=== PATIENT | male | born 1940 | race Caucasian/White ===

== ENCOUNTER 2021-10-07 10:47 | Inpatient (IN) ==
[2021-10-07 11:25] LABS: Basophils # 0.1 10*3/uL (0.0-0.2); Basophils % 0.4 % (0.0-0.8); Eosinophils # 0.3 10*3/uL (0.0-0.87); Eosinophils % 2.2 % (0.00-10.9); Hematocrit 44.7 VOL% (42.0-52.0); Hemoglobin 14.7 GM/DL (14.0-18.0); Immature Granulocytes % 0.4 %; Immature Granulocytes Absolute 0.05 #; Lymphocytes % 17.5 % (21.2-54.2); Mean Corpuscular HGB Conc 32.9 GM/DL (32-36); Mean Corpuscular Volume 96.1 FL (87-102); Mean Platelet Volume 9.6 FL (9.6-12.0); Monocytes # 0.8 10*3/uL (0.11-0.8); Monocytes % 6.7 % (1.7-12.7); Neutrophils % 72.8 % (38.7-73.9); Platelet Count 288 T/CUMM (130-400); Red Blood Count 4.65 MC/CUMM (3.8-5.5); Red Cell Distribution Width 13.5 % (9.3-17.3); White Blood Count 11.5 T/CUMM (4-12)
[2021-10-07] MEDS ORDERED: ALBUTEROL/IPRATROPIUM 3 ML NEB RESP TX STA (11:35)
[2021-10-07] MEDS ORDERED: methylPREDNISolone SOD SUC 125 MG/2 ML VIAL IV STA (11:35)
[2021-10-07 11:46] LABS: Albumin 2.5 G/DL (3.4-5.0); Bilirubin,Total 0.6 MG/DL (0.20-1.00); Calcium 8.3 MG/DL (8.5-10.1); Osmolality,Calculated 283.1 MOS/KG (273-304); Potassium 3.9 MMOL/L (3.5-5.1); Total Protein 6.1 G/DL (6.4-8.2)
[2021-10-07 13:10] LABS: Mucus,Urine Many /LPF (Occasional); RBC,Urine 393 /HPF (0-4); Squamous Epithelial Cell,Urine Few /HPF (0-10)
[2021-10-07 13:11] LABS: Urine Color Yellow (Yellow)
[2021-10-07 13:12] LABS: Bilirubin,Urine Negative (Negative); Blood, Urine Large mg/dL (Negative); Glucose,Urine (UA) Negative (Negative); Ketones,Urine Negative (Negative); Nitrite,Urine Positive (Negative); Protein,Urine >=300 mg/dL (Negative); Urine Appearance Cloudy (Clear); Urine Specific Gravity > 1.030 (1.001-1.035); Urine Urobilinogen 0.2 eU/dL (<2.0); Urine pH 6.5 (4.5-8.0)
[2021-10-07] MEDS ORDERED: cefTRIAXone 1,000 MG in SODIUM CHLORIDE 0.9% 100 ML IV STA (13:38)
[2021-10-07] MEDS ORDERED: ONDANSETRON 4 MG/2 ML VIAL IV PRN (13:47)
[2021-10-07] MEDS ORDERED: ACETAMINOPHEN 325 MG TABLET PO PRN (13:47)
[2021-10-07] MEDS ORDERED: hydrOXYzine HCL 25 MG TABLET PO PRN (16:19)
[2021-10-07] MEDS: SODIUM CHLORIDE 0.9% 1,000 ML IV SCH ×2 (16:36→23:38)
[2021-10-07] MEDS: lisinopriL 10 MG TABLET PO SCH (17:54)
[2021-10-07] MEDS: METOPROLOL TARTRATE 100 MG TABLET PO SCH (17:54)
[2021-10-07] MEDS: methylPREDNISolone SOD SUC 40 MG/1 ML VIAL IV SCH (17:55)
[2021-10-07 18:35] LABS: Mucus,Urine Occasional /LPF (Occasional); RBC,Urine 46 /HPF (0-4)
[2021-10-07 18:36] LABS: Bilirubin,Urine Negative (Negative); Blood, Urine Large mg/dL (Negative); Glucose,Urine (UA) Negative (Negative); Ketones,Urine Negative (Negative); Nitrite,Urine Negative (Negative); Protein,Urine 100 mg/dL (Negative); Urine Appearance Cloudy (Clear); Urine Color Yellow (Yellow); Urine Specific Gravity 1.015 (1.001-1.035); Urine Urobilinogen 0.2 eU/dL (<2.0)
[2021-10-07] MEDS: ALBUTEROL/IPRATROPIUM 3 ML NEB RESP TX SCH (19:25)
[2021-10-07] MEDS: DOCUSATE SODIUM 100 MG CAPSULE PO SCH (20:56)
[2021-10-08] MEDS: methylPREDNISolone SOD SUC 40 MG/1 ML VIAL IV SCH ×3 (02:10→17:21)
[2021-10-08 06:32] LABS: Basophils % 0.2 % (0.0-0.8); Hematocrit 39.7 VOL% (42.0-52.0); Hemoglobin 12.9 GM/DL (14.0-18.0); Immature Granulocytes Absolute 0.13 #; Mean Corpuscular HGB Conc 32.5 GM/DL (32-36); Mean Platelet Volume 10.2 FL (9.6-12.0); Monocytes # 0.1 10*3/uL (0.11-0.8); Monocytes % 0.9 % (1.7-12.7); Neutrophils % 89.9 % (38.7-73.9); Platelet Count 276 T/CUMM (130-400); Red Blood Count 4.05 MC/CUMM (3.8-5.5); Red Cell Distribution Width 13.2 % (9.3-17.3); White Blood Count 12.9 T/CUMM (4-12)
[2021-10-08 07:03] LABS: Calcium 8.1 MG/DL (8.5-10.1); Osmolality,Calculated 285.1 MOS/KG (273-304); Potassium 3.8 MMOL/L (3.5-5.1)
[2021-10-08] MEDS: ALBUTEROL/IPRATROPIUM 3 ML NEB RESP TX SCH ×4 (07:30→19:20)
[2021-10-08] MEDS: cefTRIAXone 1,000 MG in SODIUM CHLORIDE 0.9% 100 ML IV SCH (08:28)
[2021-10-08] MEDS: DOCUSATE SODIUM 100 MG CAPSULE PO SCH ×2 (08:28→21:27)
[2021-10-08] MEDS: METOPROLOL TARTRATE 100 MG TABLET PO SCH (08:29)
[2021-10-08] MEDS: lisinopriL 10 MG TABLET PO SCH (08:29)
[2021-10-08] MEDS: SODIUM CHLORIDE 0.9% 1,000 ML IV SCH ×2 (08:29→16:57)
[2021-10-08] MEDS: PANTOPRAZOLE 40 MG TABLET PO SCH (08:29)
[2021-10-08] MEDS: TAMSULOSIN 0.4 MG CAPSULE PO SCH (08:29)
[2021-10-09] MEDS: SODIUM CHLORIDE 0.9% 1,000 ML IV SCH ×3 (00:20→18:36)
[2021-10-09] MEDS: ALBUTEROL/IPRATROPIUM 3 ML NEB RESP TX SCH ×4 (01:35→19:13)
[2021-10-09] MEDS: methylPREDNISolone SOD SUC 40 MG/1 ML VIAL IV SCH ×4 (01:50→18:35)
[2021-10-09 05:01] LABS: Basophils % 0.1 % (0.0-0.8); Hematocrit 38.4 VOL% (42.0-52.0); Hemoglobin 12.2 GM/DL (14.0-18.0); Immature Granulocytes % 1.3 %; Immature Granulocytes Absolute 0.25 #; Lymphocytes # 0.8 10*3/uL (1.4-4.0); Lymphocytes % 4.1 % (21.2-54.2); Mean Corpuscular HGB Conc 31.8 GM/DL (32-36); Mean Corpuscular Volume 98.7 FL (87-102); Mean Platelet Volume 9.7 FL (9.6-12.0); Monocytes # 0.4 10*3/uL (0.11-0.8); Monocytes % 1.8 % (1.7-12.7); Neutrophils % 92.7 % (38.7-73.9); Platelet Count 272 T/CUMM (130-400); Red Blood Count 3.89 MC/CUMM (3.8-5.5); Red Cell Distribution Width 13.5 % (9.3-17.3); White Blood Count 19.5 T/CUMM (4-12)
[2021-10-09 05:23] LABS: Bilirubin,Total 0.5 MG/DL (0.20-1.00); Potassium 3.7 MMOL/L (3.5-5.1); Total Protein 5.4 G/DL (6.4-8.2)
[2021-10-09 05:27] LABS: Lymphocytes 4 % (20-55); Microcytosis 1+; Ovalocytes Slight; Total Cells Counted 100
[2021-10-09 05:28] LABS: Platelet Estimate Normal
[2021-10-09] MEDS: DOCUSATE SODIUM 100 MG CAPSULE PO SCH ×3 (07:59→21:04)
[2021-10-09] MEDS: METOPROLOL TARTRATE 100 MG TABLET PO SCH ×2 (07:59→09:54)
[2021-10-09] MEDS: PANTOPRAZOLE 40 MG TABLET PO SCH ×2 (07:59→09:55)
[2021-10-09] MEDS: TAMSULOSIN 0.4 MG CAPSULE PO SCH ×2 (07:59→09:54)
[2021-10-09] MEDS: cefTRIAXone 1,000 MG in SODIUM CHLORIDE 0.9% 100 ML IV SCH (08:00)
[2021-10-09] MEDS: lisinopriL 10 MG TABLET PO SCH ×2 (08:00→09:54)
[2021-10-09] MEDS: BUDESONIDE 0.25 MG/2 ML NEB RESP TX SCH ×2 (13:38→19:14)
[2021-10-09] MEDS: MEROPENEM 500 MG in SODIUM CHLORIDE 0.9% 100 ML IV SCH ×2 (15:43→21:03)
[2021-10-09] MEDS: AZITHROMYCIN 250 MG TABLET PO SCH (15:45)
[2021-10-10] MEDS: ALBUTEROL/IPRATROPIUM 3 ML NEB RESP TX SCH ×4 (00:42→19:22)
[2021-10-10] MEDS: methylPREDNISolone SOD SUC 40 MG/1 ML VIAL IV SCH ×3 (02:38→17:18)
[2021-10-10] MEDS: SODIUM CHLORIDE 0.9% 1,000 ML IV SCH ×4 (02:45→22:16)
[2021-10-10] MEDS: MEROPENEM 500 MG in SODIUM CHLORIDE 0.9% 100 ML IV SCH ×4 (04:27→21:15)
[2021-10-10 05:33] LABS: Basophils % 0.1 % (0.0-0.8); Hematocrit 37.5 VOL% (42.0-52.0); Hemoglobin 12.2 GM/DL (14.0-18.0); Immature Granulocytes % 2.4 %; Immature Granulocytes Absolute 0.38 #; Lymphocytes # 0.7 10*3/uL (1.4-4.0); Lymphocytes % 4.6 % (21.2-54.2); Mean Corpuscular HGB Conc 32.5 GM/DL (32-36); Mean Corpuscular Volume 97.2 FL (87-102); Mean Platelet Volume 9.7 FL (9.6-12.0); Monocytes # 0.5 10*3/uL (0.11-0.8); Monocytes % 2.9 % (1.7-12.7); Platelet Count 277 T/CUMM (130-400); Red Blood Count 3.86 MC/CUMM (3.8-5.5); Red Cell Distribution Width 13.6 % (9.3-17.3); White Blood Count 16.1 T/CUMM (4-12)
[2021-10-10 05:59] LABS: Alanine Aminotransferase 23 U/L (16-61); Alkaline Phosphatase 65 U/L (45-117); Aspartate Amino Transferase 20 U/L (0-37); Bilirubin,Total < 0.39 MG/DL (0.20-1.00); Blood Urea Nitrogen 14 MG/DL (7-18); Calcium 7.7 MG/DL (8.5-10.1); Carbon Dioxide 21 MMOL/L (21-32); Chloride 115 MMOL/L (98-107); Estimated Glom Filtration Rate 87 ML/MIN; Glucose 129 MG/DL (74-106); Potassium 3.4 MMOL/L (3.5-5.1); Sodium 143 MMOL/L (136-145); Total Protein 5.3 G/DL (6.4-8.2)
[2021-10-10 06:11] LABS: Lymphocytes 3 % (20-55); Platelet Estimate Normal; Total Cells Counted 100
[2021-10-10] MEDS: BUDESONIDE 0.25 MG/2 ML NEB RESP TX SCH ×2 (07:20→19:22)
[2021-10-10] MEDS: TAMSULOSIN 0.4 MG CAPSULE PO SCH (09:26)
[2021-10-10] MEDS: AZITHROMYCIN 250 MG TABLET PO SCH (09:26)
[2021-10-10] MEDS: lisinopriL 10 MG TABLET PO SCH (09:26)
[2021-10-10] MEDS: AMPICILLIN 500 MG CAPSULE PO SCH ×4 (09:26→20:12)
[2021-10-10] MEDS: METOPROLOL TARTRATE 100 MG TABLET PO SCH (09:27)
[2021-10-10] MEDS: DOCUSATE SODIUM 100 MG CAPSULE PO SCH ×2 (09:27→20:12)
[2021-10-10] MEDS: PANTOPRAZOLE 40 MG TABLET PO SCH (09:28)
[2021-10-10] MEDS: BISACODYL 5 MG TABLET PO PRN (20:15)
[2021-10-11] MEDS: ALBUTEROL/IPRATROPIUM 3 ML NEB RESP TX SCH ×4 (00:31→19:35)
[2021-10-11] MEDS: MEROPENEM 500 MG in SODIUM CHLORIDE 0.9% 100 ML IV SCH ×4 (03:13→21:30)
[2021-10-11] MEDS: methylPREDNISolone SOD SUC 40 MG/1 ML VIAL IV SCH ×3 (03:13→17:30)
[2021-10-11] MEDS: SODIUM CHLORIDE 0.9% 1,000 ML IV SCH ×2 (05:02→14:00)
[2021-10-11 06:15] LABS: Basophils # 0.1 10*3/uL (0.0-0.2); Basophils % 0.5 % (0.0-0.8); Hematocrit 38.9 VOL% (42.0-52.0); Hemoglobin 12.6 GM/DL (14.0-18.0); Immature Granulocytes % 5.2 %; Immature Granulocytes Absolute 0.77 #; Lymphocytes % 6.9 % (21.2-54.2); Mean Corpuscular HGB Conc 32.4 GM/DL (32-36); Monocytes # 0.7 10*3/uL (0.11-0.8); Monocytes % 4.5 % (1.7-12.7); Neutrophils % 82.9 % (38.7-73.9); Platelet Count 269 T/CUMM (130-400); Red Blood Count 3.97 MC/CUMM (3.8-5.5); Red Cell Distribution Width 13.5 % (9.3-17.3); White Blood Count 14.7 T/CUMM (4-12)
[2021-10-11 06:34] LABS: Bilirubin,Total 1.3 MG/DL (0.20-1.00); Calcium 7.9 MG/DL (8.5-10.1); Osmolality,Calculated 291.7 MOS/KG (273-304); Potassium 3.4 MMOL/L (3.5-5.1); Total Protein 5.3 G/DL (6.4-8.2)
[2021-10-11 06:46] LABS: Band Neutrophils 4 % (0-10); Lymphocytes 10 % (20-55); Myelocytes 1 %; Platelet Estimate Normal; Smudge Cells Few; Total Cells Counted 100
[2021-10-11 06:47] LABS: Anisocytosis 1+; Burr Cells Few; Macrocytosis Slight
[2021-10-11] MEDS: BUDESONIDE 0.25 MG/2 ML NEB RESP TX SCH ×2 (07:00→19:35)
[2021-10-11] MEDS ORDERED: ALBUTEROL/IPRATROPIUM 3 ML NEB RESP TX PRN (08:39)
[2021-10-11] MEDS: AMPICILLIN 500 MG CAPSULE PO SCH ×4 (09:33→20:56)
[2021-10-11] MEDS: TAMSULOSIN 0.4 MG CAPSULE PO SCH (09:33)
[2021-10-11] MEDS: METOPROLOL TARTRATE 100 MG TABLET PO SCH (09:34)
[2021-10-11] MEDS: PANTOPRAZOLE 40 MG TABLET PO SCH (09:34)
[2021-10-11] MEDS: AZITHROMYCIN 250 MG TABLET PO SCH (09:34)
[2021-10-11] MEDS: DOCUSATE SODIUM 100 MG CAPSULE PO SCH ×2 (09:34→20:56)
[2021-10-11] MEDS: lisinopriL 10 MG TABLET PO SCH (09:41)
[2021-10-11] MEDS: BISACODYL 5 MG TABLET PO PRN (20:56)
[2021-10-12] MEDS: ALBUTEROL/IPRATROPIUM 3 ML NEB RESP TX SCH ×4 (00:28→19:37)
[2021-10-12] MEDS: SODIUM CHLORIDE 0.9% 1,000 ML IV SCH ×4 (01:50→21:56)
[2021-10-12] MEDS: methylPREDNISolone SOD SUC 40 MG/1 ML VIAL IV SCH ×3 (03:30→17:14)
[2021-10-12] MEDS: MEROPENEM 500 MG in SODIUM CHLORIDE 0.9% 100 ML IV SCH ×4 (03:42→21:51)
[2021-10-12 05:47] LABS: Basophils # 0.1 10*3/uL (0.0-0.2); Basophils % 0.7 % (0.0-0.8); Hematocrit 38.6 VOL% (42.0-52.0); Hemoglobin 12.8 GM/DL (14.0-18.0); Immature Granulocytes % 5.6 %; Immature Granulocytes Absolute 0.89 #; Lymphocytes # 1.3 10*3/uL (1.4-4.0); Lymphocytes % 8.1 % (21.2-54.2); Mean Corpuscular HGB Conc 33.2 GM/DL (32-36); Mean Corpuscular Volume 97.2 FL (87-102); Mean Platelet Volume 10.7 FL (9.6-12.0); Monocytes # 0.8 10*3/uL (0.11-0.8); Monocytes % 5.1 % (1.7-12.7); NRBC # 0.08 10*3/uL; Neutrophils % 80.5 % (38.7-73.9); Platelet Count 257 T/CUMM (130-400); Red Blood Count 3.97 MC/CUMM (3.8-5.5); Red Cell Distribution Width 13.6 % (9.3-17.3); White Blood Count 15.8 T/CUMM (4-12)
[2021-10-12 05:51] LABS: Lymphocytes 9 % (20-55); Metamyelocytes 2 %; Total Cells Counted 100
[2021-10-12 05:52] LABS: Microcytosis 1+; Ovalocytes Slight
[2021-10-12 05:53] LABS: Platelet Estimate Normal; Polychromasia Slight
[2021-10-12] MEDS: BUDESONIDE 0.25 MG/2 ML NEB RESP TX SCH ×2 (07:50→19:37)
[2021-10-12] MEDS: DOCUSATE SODIUM 100 MG CAPSULE PO SCH ×2 (08:15→21:52)
[2021-10-12] MEDS: lisinopriL 10 MG TABLET PO SCH (08:15)
[2021-10-12] MEDS: PANTOPRAZOLE 40 MG TABLET PO SCH (08:16)
[2021-10-12] MEDS: METOPROLOL TARTRATE 100 MG TABLET PO SCH (08:16)
[2021-10-12] MEDS: AZITHROMYCIN 250 MG TABLET PO SCH (08:16)
[2021-10-12] MEDS: AMPICILLIN 500 MG CAPSULE PO SCH ×4 (08:16→21:52)
[2021-10-12] MEDS: TAMSULOSIN 0.4 MG CAPSULE PO SCH ×2 (08:16→21:52)
[2021-10-12] MEDS: MAGNESIUM CITRATE 300 ML BOTTLE PO SCH (21:51)
[2021-10-13] MEDS: ALBUTEROL/IPRATROPIUM 3 ML NEB RESP TX SCH ×4 (00:46→19:25)
[2021-10-13] MEDS: methylPREDNISolone SOD SUC 40 MG/1 ML VIAL IV SCH ×3 (01:37→17:09)
[2021-10-13] MEDS: MEROPENEM 500 MG in SODIUM CHLORIDE 0.9% 100 ML IV SCH ×4 (05:01→21:39)
[2021-10-13] MEDS: MAGNESIUM CITRATE 300 ML BOTTLE PO SCH ×2 (05:01→14:50)
[2021-10-13] MEDS: BUDESONIDE 0.25 MG/2 ML NEB RESP TX SCH ×2 (07:41→19:25)
[2021-10-13] MEDS: TAMSULOSIN 0.4 MG CAPSULE PO SCH ×2 (09:45→21:40)
[2021-10-13] MEDS: lisinopriL 10 MG TABLET PO SCH (09:45)
[2021-10-13] MEDS: AMPICILLIN 500 MG CAPSULE PO SCH ×4 (09:45→21:40)
[2021-10-13] MEDS: DOCUSATE SODIUM 100 MG CAPSULE PO SCH ×2 (09:46→21:40)
[2021-10-13] MEDS: METOPROLOL TARTRATE 100 MG TABLET PO SCH (09:46)
[2021-10-13] MEDS: PANTOPRAZOLE 40 MG TABLET PO SCH (09:46)
[2021-10-13] MEDS: AZITHROMYCIN 250 MG TABLET PO SCH (09:46)
[2021-10-13] MEDS: SODIUM CHLORIDE 0.9% 1,000 ML IV SCH ×2 (11:40→17:45)
[2021-10-13] MEDS ORDERED: BISACODYL 10 MG SUPP RECTAL ONE (13:45)
[2021-10-13] MEDS ORDERED: SODIUM PHOSPHATE ENEMA 133 ML BOTTLE RECTAL ONE (14:30)
[2021-10-13] MEDS: LACTULOSE 20 GM/30 ML UDCUP PO SCH ×2 (16:46→21:40)
[2021-10-14] MEDS: methylPREDNISolone SOD SUC 40 MG/1 ML VIAL IV SCH ×3 (01:10→18:03)
[2021-10-14] MEDS: ALBUTEROL/IPRATROPIUM 3 ML NEB RESP TX SCH ×4 (01:10→19:23)
[2021-10-14] MEDS: SODIUM CHLORIDE 0.9% 1,000 ML IV SCH ×3 (01:10→21:37)
[2021-10-14] MEDS: MEROPENEM 500 MG in SODIUM CHLORIDE 0.9% 100 ML IV SCH ×4 (03:31→21:37)
[2021-10-14 04:59] LABS: Basophils # 0.1 10*3/uL (0.0-0.2); Basophils % 0.7 % (0.0-0.8); Hematocrit 43.7 VOL% (42.0-52.0); Hemoglobin 14.4 GM/DL (14.0-18.0); Immature Granulocytes Absolute 1.19 #; Lymphocytes # 0.8 10*3/uL (1.4-4.0); Lymphocytes % 4.2 % (21.2-54.2); Mean Corpuscular Volume 95.6 FL (87-102); Mean Platelet Volume 9.7 FL (9.6-12.0); Monocytes # 0.7 10*3/uL (0.11-0.8); Monocytes % 3.5 % (1.7-12.7); NRBC # 0.03 10*3/uL; Neutrophils % 85.6 % (38.7-73.9); Platelet Count 252 T/CUMM (130-400); Red Blood Count 4.57 MC/CUMM (3.8-5.5); Red Cell Distribution Width 13.7 % (9.3-17.3); White Blood Count 19.8 T/CUMM (4-12)
[2021-10-14 05:19] LABS: Albumin 2.2 G/DL (3.4-5.0); Bilirubin,Total 0.6 MG/DL (0.20-1.00); Calcium 7.9 MG/DL (8.5-10.1); Osmolality,Calculated 286.1 MOS/KG (273-304); Total Protein 5.3 G/DL (6.4-8.2)
[2021-10-14 05:22] LABS: Hypochromia Slight; Lymphocytes 2 % (20-55); Microcytosis 1+; Total Cells Counted 100
[2021-10-14 05:23] LABS: Ovalocytes Slight; Platelet Estimate Normal
[2021-10-14] MEDS: BUDESONIDE 0.25 MG/2 ML NEB RESP TX SCH ×2 (06:59→19:23)
[2021-10-14] MEDS ORDERED: MEPERIDINE 50 MG/1 ML VIAL IM ONE (07:30)
[2021-10-14] MEDS ORDERED: PROMETHAZINE 25 MG/1 ML VIAL IM ONE (07:30)
[2021-10-14] MEDS ORDERED: LIDOCAINE 2% VISCOUS 100 ML BOTTLE SWISH/SPIT ONE (08:00)
[2021-10-14] MEDS ORDERED: LIDOCAINE 1% 20 ML VIAL MISC INJ ONE (08:00)
[2021-10-14] MEDS ORDERED: MIDAZOLAM 2 MG/2 ML VIAL IV ONE (08:00)
[2021-10-14] MEDS ORDERED: LIDOCAINE 2% 20 ML VIAL RESP TX ONE (08:00)
[2021-10-14] MEDS: DOCUSATE SODIUM 100 MG CAPSULE PO SCH ×2 (11:09→21:36)
[2021-10-14] MEDS: AMPICILLIN 500 MG CAPSULE PO SCH ×4 (11:09→21:36)
[2021-10-14] MEDS: POLYETHYLENE GLYCOL POWDER 17 GM PACK PO SCH (11:10)
[2021-10-14] MEDS: LACTULOSE 20 GM/30 ML UDCUP PO SCH (11:51)
[2021-10-14] MEDS: METOPROLOL TARTRATE 100 MG TABLET PO SCH (14:06)
[2021-10-14] MEDS: AZITHROMYCIN 250 MG TABLET PO SCH (14:06)
[2021-10-14] MEDS: PANTOPRAZOLE 40 MG TABLET PO SCH (14:06)
[2021-10-14] MEDS: lisinopriL 10 MG TABLET PO SCH (14:06)
[2021-10-14] MEDS: TAMSULOSIN 0.4 MG CAPSULE PO SCH ×2 (15:17→21:36)
[2021-10-15] MEDS: ALBUTEROL/IPRATROPIUM 3 ML NEB RESP TX SCH ×4 (00:38→19:44)
[2021-10-15] MEDS: methylPREDNISolone SOD SUC 40 MG/1 ML VIAL IV SCH ×3 (02:02→17:38)
[2021-10-15] MEDS: MEROPENEM 500 MG in SODIUM CHLORIDE 0.9% 100 ML IV SCH ×4 (04:50→22:41)
[2021-10-15] MEDS: BUDESONIDE 0.25 MG/2 ML NEB RESP TX SCH ×2 (07:35→19:44)
[2021-10-15] MEDS ORDERED: NICOTINE 7 MG/24 HR PATCH TRANSDERM PRN (09:00)
[2021-10-15] MEDS: AMPICILLIN 500 MG CAPSULE PO SCH ×4 (09:23→20:38)
[2021-10-15] MEDS: AZITHROMYCIN 250 MG TABLET PO SCH (09:23)
[2021-10-15] MEDS: TAMSULOSIN 0.4 MG CAPSULE PO SCH ×2 (09:23→20:39)
[2021-10-15] MEDS: PANTOPRAZOLE 40 MG TABLET PO SCH (09:24)
[2021-10-15] MEDS: DOCUSATE SODIUM 100 MG CAPSULE PO SCH ×2 (09:24→20:39)
[2021-10-15] MEDS: METOPROLOL TARTRATE 100 MG TABLET PO SCH (09:24)
[2021-10-15] MEDS: lisinopriL 10 MG TABLET PO SCH (09:24)
[2021-10-15] MEDS: POLYETHYLENE GLYCOL POWDER 17 GM PACK PO SCH (10:16)
[2021-10-15] MEDS: SODIUM CHLORIDE 0.9% 1,000 ML IV SCH (13:58)
[2021-10-16] MEDS: ALBUTEROL/IPRATROPIUM 3 ML NEB RESP TX SCH ×4 (00:45→19:35)
[2021-10-16] MEDS: methylPREDNISolone SOD SUC 40 MG/1 ML VIAL IV SCH ×3 (01:52→21:35)
[2021-10-16] MEDS: MEROPENEM 500 MG in SODIUM CHLORIDE 0.9% 100 ML IV SCH ×4 (03:32→21:37)
[2021-10-16] MEDS: SODIUM CHLORIDE 0.9% 1,000 ML IV SCH (03:36)
[2021-10-16 05:48] LABS: Basophils # 0.1 10*3/uL (0.0-0.2); Basophils % 0.5 % (0.0-0.8); Hematocrit 43.2 VOL% (42.0-52.0); Hemoglobin 13.7 GM/DL (14.0-18.0); Immature Granulocytes % 5.2 %; Immature Granulocytes Absolute 0.86 #; Lymphocytes # 0.7 10*3/uL (1.4-4.0); Lymphocytes % 4.2 % (21.2-54.2); Mean Corpuscular HGB Conc 31.7 GM/DL (32-36); Mean Corpuscular Volume 96.9 FL (87-102); Mean Platelet Volume 9.9 FL (9.6-12.0); Monocytes # 0.6 10*3/uL (0.11-0.8); Monocytes % 3.4 % (1.7-12.7); Neutrophils % 86.7 % (38.7-73.9); Platelet Count 228 T/CUMM (130-400); Red Blood Count 4.46 MC/CUMM (3.8-5.5); White Blood Count 16.5 T/CUMM (4-12)
[2021-10-16 06:07] LABS: Albumin 2.1 G/DL (3.4-5.0); Bilirubin,Total 0.6 MG/DL (0.20-1.00); Calcium 7.5 MG/DL (8.5-10.1); Potassium 3.9 MMOL/L (3.5-5.1); Total Protein 5.1 G/DL (6.4-8.2)
[2021-10-16 06:12] LABS: Lymphocytes 1 % (20-55); Platelet Estimate Adequate; Total Cells Counted 100
[2021-10-16] MEDS: BUDESONIDE 0.25 MG/2 ML NEB RESP TX SCH ×2 (07:30→19:45)
[2021-10-16] MEDS: DOCUSATE SODIUM 100 MG CAPSULE PO SCH ×2 (09:22→21:34)
[2021-10-16] MEDS: PANTOPRAZOLE 40 MG TABLET PO SCH (09:22)
[2021-10-16] MEDS: AMPICILLIN 500 MG CAPSULE PO SCH ×4 (09:22→21:34)
[2021-10-16] MEDS: METOPROLOL TARTRATE 100 MG TABLET PO SCH (09:22)
[2021-10-16] MEDS: TAMSULOSIN 0.4 MG CAPSULE PO SCH ×2 (09:22→21:34)
[2021-10-16] MEDS: LACTULOSE 20 GM/30 ML UDCUP PO SCH (09:22)
[2021-10-16] MEDS: POLYETHYLENE GLYCOL POWDER 17 GM PACK PO SCH (09:22)
[2021-10-16] MEDS: AZITHROMYCIN 250 MG TABLET PO SCH (09:22)
[2021-10-16] MEDS: lisinopriL 10 MG TABLET PO SCH (09:22)
[2021-10-17] MEDS: ALBUTEROL/IPRATROPIUM 3 ML NEB RESP TX SCH ×4 (01:35→19:13)
[2021-10-17] MEDS: BUDESONIDE 0.25 MG/2 ML NEB RESP TX SCH ×2 (07:07→19:13)
[2021-10-17] MEDS: DOCUSATE SODIUM 100 MG CAPSULE PO SCH ×2 (08:44→21:28)
[2021-10-17] MEDS: PANTOPRAZOLE 40 MG TABLET PO SCH (08:44)
[2021-10-17] MEDS: POLYETHYLENE GLYCOL POWDER 17 GM PACK PO SCH (08:44)
[2021-10-17] MEDS: METOPROLOL TARTRATE 100 MG TABLET PO SCH (08:44)
[2021-10-17] MEDS: LACTULOSE 20 GM/30 ML UDCUP PO SCH (08:45)
[2021-10-17] MEDS: methylPREDNISolone SOD SUC 40 MG/1 ML VIAL IV SCH ×2 (08:45→21:28)
[2021-10-17] MEDS: lisinopriL 10 MG TABLET PO SCH (08:45)
[2021-10-17] MEDS: TAMSULOSIN 0.4 MG CAPSULE PO SCH ×2 (08:45→21:28)
[2021-10-17] MEDS: FLUCONAZOLE 100 MG TABLET PO SCH (09:47)
[2021-10-18 05:15] LABS: Basophils # 0.1 10*3/uL (0.0-0.2); Basophils % 0.6 % (0.0-0.8); Hematocrit 44.5 VOL% (42.0-52.0); Hemoglobin 14.6 GM/DL (14.0-18.0); Immature Granulocytes % 4.5 %; Immature Granulocytes Absolute 0.79 #; Lymphocytes # 0.9 10*3/uL (1.4-4.0); Mean Corpuscular HGB Conc 32.8 GM/DL (32-36); Mean Corpuscular Volume 96.5 FL (87-102); Mean Platelet Volume 9.9 FL (9.6-12.0); Monocytes # 0.6 10*3/uL (0.11-0.8); Monocytes % 3.3 % (1.7-12.7); Neutrophils % 86.6 % (38.7-73.9); Platelet Count 220 T/CUMM (130-400); Red Blood Count 4.61 MC/CUMM (3.8-5.5); Red Cell Distribution Width 14.1 % (9.3-17.3); White Blood Count 17.5 T/CUMM (4-12)
[2021-10-18 05:43] LABS: Calcium 7.5 MG/DL (8.5-10.1); Osmolality,Calculated 284.3 MOS/KG (273-304); Potassium 4.2 MMOL/L (3.5-5.1)
[2021-10-18 06:00] LABS: Band Neutrophils 1 % (0-10); Lymphocytes 4 % (20-55); Total Cells Counted 100
[2021-10-18 06:01] LABS: Microcytosis 1+; Platelet Estimate Normal
[2021-10-18] MEDS: BUDESONIDE 0.25 MG/2 ML NEB RESP TX SCH ×2 (07:00→20:30)
[2021-10-18] MEDS: ALBUTEROL/IPRATROPIUM 3 ML NEB RESP TX SCH ×3 (07:00→19:20)
[2021-10-18] MEDS: LACTULOSE 20 GM/30 ML UDCUP PO SCH (08:59)
[2021-10-18] MEDS: PANTOPRAZOLE 40 MG TABLET PO SCH (09:00)
[2021-10-18] MEDS: DOCUSATE SODIUM 100 MG CAPSULE PO SCH ×2 (09:00→21:19)
[2021-10-18] MEDS: FLUCONAZOLE 100 MG TABLET PO SCH (09:00)
[2021-10-18] MEDS: POLYETHYLENE GLYCOL POWDER 17 GM PACK PO SCH (09:00)
[2021-10-18] MEDS: lisinopriL 10 MG TABLET PO SCH (09:00)
[2021-10-18] MEDS: methylPREDNISolone SOD SUC 40 MG/1 ML VIAL IV SCH ×2 (09:00→21:20)
[2021-10-18] MEDS: METOPROLOL TARTRATE 100 MG TABLET PO SCH (09:00)
[2021-10-18] MEDS: TAMSULOSIN 0.4 MG CAPSULE PO SCH ×2 (09:00→21:19)
[2021-10-19] MEDS: ALBUTEROL/IPRATROPIUM 3 ML NEB RESP TX SCH ×3 (00:45→14:10)
[2021-10-19] MEDS: BUDESONIDE 0.25 MG/2 ML NEB RESP TX SCH (07:15)
[2021-10-19] MEDS ORDERED: predniSONE 20 MG TABLET PO SCH (09:00)
[2021-10-19] MEDS: LACTULOSE 20 GM/30 ML UDCUP PO SCH (09:06)
[2021-10-19] MEDS: DOCUSATE SODIUM 100 MG CAPSULE PO SCH (09:07)
[2021-10-19] MEDS: TAMSULOSIN 0.4 MG CAPSULE PO SCH (09:07)
[2021-10-19] MEDS: PANTOPRAZOLE 40 MG TABLET PO SCH (09:07)
[2021-10-19] MEDS: POLYETHYLENE GLYCOL POWDER 17 GM PACK PO SCH (09:07)
[2021-10-19] MEDS: FLUCONAZOLE 100 MG TABLET PO SCH (09:07)
[2021-10-19] MEDS: lisinopriL 10 MG TABLET PO SCH (09:08)
[2021-10-19] MEDS: METOPROLOL TARTRATE 100 MG TABLET PO SCH (09:12)
[2021-10-19 17:53] VITALS: BP 153/88
== END 2021-10-19 18:00 | disposition home health service (06) | DRG 190 ==
LOC: N.ED 10:47 → N.EDINP 10:47 → N.3E 15:18
PROVIDERS: ADMIT Internal Medicine; ATTEND Internal Medicine

== ENCOUNTER 2021-11-12 18:59 | Inpatient (IN) ==
[2021-11-12] MEDS ORDERED: ALBUTEROL/IPRATROPIUM 3 ML NEB RESP TX STA (19:48)
[2021-11-12] MEDS ORDERED: methylPREDNISolone SOD SUC 125 MG/2 ML VIAL IV STA (19:48)
[2021-11-12] MEDS ORDERED: DIPH/TET/ACEL PERT BOOSTER VACCINE 0.5 ML VIAL IM ONE (19:48)
[2021-11-12 20:10] LABS: Basophils # 0.1 10*3/uL (0.0-0.2); Basophils % 0.7 % (0.0-0.8); Eosinophils # 0.1 10*3/uL (0.0-0.87); Eosinophils % 0.5 % (0.00-10.9); Hematocrit 45.1 VOL% (42.0-52.0); Hemoglobin 14.5 GM/DL (14.0-18.0); Immature Granulocytes % 4.8 %; Immature Granulocytes Absolute 0.51 #; Lymphocytes # 2.6 10*3/uL (1.4-4.0); Lymphocytes % 24.5 % (21.2-54.2); Mean Corpuscular HGB Conc 32.2 GM/DL (32-36); Mean Corpuscular Volume 97.4 FL (87-102); Mean Platelet Volume 9.3 FL (9.6-12.0); Monocytes # 0.6 10*3/uL (0.11-0.8); Neutrophils % 63.5 % (38.7-73.9); Platelet Count 256 T/CUMM (130-400); Red Blood Count 4.63 MC/CUMM (3.8-5.5); Red Cell Distribution Width 14.6 % (9.3-17.3); White Blood Count 10.7 T/CUMM (4-12)
[2021-11-12 20:20] LABS: PT Patient Result 10.9 SECS (10.5-12.0)
[2021-11-12 20:34] LABS: Calcium 8.3 MG/DL (8.5-10.1); Osmolality,Calculated 288.8 MOS/KG (273-304)
[2021-11-12 20:47] LABS: Lymphocytes 25 % (20-55); Platelet Estimate Adequate; Total Cells Counted 100
[2021-11-13] MEDS ORDERED: ONDANSETRON 4 MG/2 ML VIAL IV PRN (00:43)
[2021-11-13] MEDS ORDERED: MORPHINE 2 MG/1 ML SYRINGE IV PRN (00:43)
[2021-11-13] MEDS ORDERED: ACETAMINOPHEN 325 MG TABLET PO PRN (00:43)
[2021-11-13] MEDS: ALBUTEROL/IPRATROPIUM 3 ML NEB RESP TX SCH ×7 (00:49→23:28)
[2021-11-13 01:11] LABS: Bacteria,Urine Many /HPF (Few); Bilirubin,Urine Negative (Negative); Blood, Urine Large mg/dL (Negative); Glucose,Urine (UA) Negative (Negative); Ketones,Urine Negative (Negative); Mucus,Urine Occasional /LPF (Occasional); Nitrite,Urine Positive (Negative); Protein,Urine 30 mg/dL (Negative); RBC,Urine 13 /HPF (0-4); Squamous Epithelial Cell,Urine Occasional /HPF (0-10); Urine Appearance SL CLOUDY (Clear); Urine Color Yellow (Yellow); Urine Specific Gravity >= 1.030 (1.001-1.035); Urine Urobilinogen 0.2 eU/dL (<2.0); Urine pH 5.5 (4.5-8.0)
[2021-11-13 01:18] LABS: Barbiturates Screen,Urine Negative (Negative); Benzodiazepines Screen,Urine Negative (Negative); Cannabinoid Screen,Urine Negative (Negative); Opiate Screen,Urine Negative (Negative); Phencyclidine Screen,Urine Negative (Negative)
[2021-11-13] MEDS: SODIUM CHLORIDE 0.9% 1,000 ML IV SCH (01:46)
[2021-11-13] MEDS: cefTRIAXone 1,000 MG in SODIUM CHLORIDE 0.9% 100 ML IV SCH (01:46)
[2021-11-13] MEDS: DOCUSATE SODIUM 100 MG CAPSULE PO SCH ×5 (01:48→22:11)
[2021-11-13 05:46] LABS: Basophils % 0.4 % (0.0-0.8); Hemoglobin 14.3 GM/DL (14.0-18.0); Immature Granulocytes % 4.4 %; Immature Granulocytes Absolute 0.48 #; Lymphocytes # 1.2 10*3/uL (1.4-4.0); Lymphocytes % 11.3 % (21.2-54.2); Mean Corpuscular HGB Conc 32.5 GM/DL (32-36); Mean Corpuscular Volume 96.1 FL (87-102); Mean Platelet Volume 9.5 FL (9.6-12.0); Monocytes # 0.1 10*3/uL (0.11-0.8); Monocytes % 0.6 % (1.7-12.7); Neutrophils % 83.3 % (38.7-73.9); Platelet Count 257 T/CUMM (130-400); Red Blood Count 4.58 MC/CUMM (3.8-5.5); Red Cell Distribution Width 14.3 % (9.3-17.3); White Blood Count 10.9 T/CUMM (4-12)
[2021-11-13 06:10] LABS: Albumin 2.5 G/DL (3.4-5.0); Bilirubin,Total 0.4 MG/DL (0.20-1.00); Calcium 8.6 MG/DL (8.5-10.1); Potassium 3.8 MMOL/L (3.5-5.1); Risk Ratio 4.26; Total Protein 5.6 G/DL (6.4-8.2); VLDL Cholesterol 19.8 MG/DL
[2021-11-13] MEDS: PANTOPRAZOLE 40 MG VIAL IV SCH (08:58)
[2021-11-13] MEDS: methylPREDNISolone SOD SUC 40 MG/1 ML VIAL IV SCH ×2 (08:59→22:11)
[2021-11-13] MEDS: APIXABAN 2.5 MG TABLET PO SCH ×2 (08:59→22:11)
[2021-11-13] MEDS: METOPROLOL TARTRATE 100 MG TABLET PO SCH (09:03)
[2021-11-13] MEDS ORDERED: BISACODYL 5 MG TABLET PO PRN (15:30)
[2021-11-13] MEDS ORDERED: PHENOL 1.4% THROAT SPRAY 177 ML BOTTLE PO PRN (15:43)
[2021-11-13] MEDS: NICOTINE 14 MG/24 HR PATCH TRANSDERM SCH (18:00)
[2021-11-13] MEDS: BUDESONIDE 0.25 MG/2 ML NEB RESP TX SCH (20:25)
[2021-11-13] MEDS ORDERED: QUEtiapine 25 MG TABLET PO SCH (21:00)
[2021-11-13] MEDS: MEMANTINE 10 MG TABLET PO SCH (21:30)
[2021-11-13] MEDS: TAMSULOSIN 0.4 MG CAPSULE PO SCH (22:11)
[2021-11-14] MEDS: cefTRIAXone 1,000 MG in SODIUM CHLORIDE 0.9% 100 ML IV SCH (01:30)
[2021-11-14] MEDS: ALBUTEROL/IPRATROPIUM 3 ML NEB RESP TX SCH ×6 (04:10→23:06)
[2021-11-14] MEDS: SODIUM CHLORIDE 0.9% 1,000 ML IV SCH (04:13)
[2021-11-14 05:52] LABS: Calcium 7.9 MG/DL (8.5-10.1); Potassium 4.1 MMOL/L (3.5-5.1)
[2021-11-14] MEDS: BUDESONIDE 0.25 MG/2 ML NEB RESP TX SCH ×2 (07:48→19:25)
[2021-11-14] MEDS: POLYETHYLENE GLYCOL POWDER 17 GM PACK PO SCH (08:44)
[2021-11-14] MEDS: LACTULOSE 20 GM/30 ML UDCUP PO SCH (08:44)
[2021-11-14] MEDS: APIXABAN 2.5 MG TABLET PO SCH ×2 (08:45→20:44)
[2021-11-14] MEDS: METOPROLOL TARTRATE 100 MG TABLET PO SCH (08:45)
[2021-11-14] MEDS: FAMOTIDINE 20 MG TABLET PO SCH (08:45)
[2021-11-14] MEDS: TAMSULOSIN 0.4 MG CAPSULE PO SCH ×2 (08:45→20:43)
[2021-11-14] MEDS: DOCUSATE SODIUM 100 MG CAPSULE PO SCH ×4 (08:45→20:43)
[2021-11-14] MEDS: PANTOPRAZOLE 40 MG VIAL IV SCH (08:45)
[2021-11-14] MEDS: ROSUVASTATIN 10 MG TABLET PO SCH (08:45)
[2021-11-14] MEDS: methylPREDNISolone SOD SUC 40 MG/1 ML VIAL IV SCH ×2 (08:46→20:42)
[2021-11-14] MEDS: NICOTINE 14 MG/24 HR PATCH TRANSDERM SCH (08:46)
[2021-11-14] MEDS: MEMANTINE 10 MG TABLET PO SCH (20:43)
[2021-11-15] MEDS: cefTRIAXone 1,000 MG in SODIUM CHLORIDE 0.9% 100 ML IV SCH (00:18)
[2021-11-15] MEDS: ALBUTEROL/IPRATROPIUM 3 ML NEB RESP TX SCH ×6 (03:47→23:55)
[2021-11-15 05:36] LABS: Calcium 8.4 MG/DL (8.5-10.1); Osmolality,Calculated 291.8 MOS/KG (273-304); Potassium 4.3 MMOL/L (3.5-5.1)
[2021-11-15] MEDS: BUDESONIDE 0.25 MG/2 ML NEB RESP TX SCH ×2 (07:42→19:25)
[2021-11-15] MEDS: LACTULOSE 20 GM/30 ML UDCUP PO SCH (09:00)
[2021-11-15] MEDS: TAMSULOSIN 0.4 MG CAPSULE PO SCH ×2 (09:00→20:30)
[2021-11-15] MEDS: POLYETHYLENE GLYCOL POWDER 17 GM PACK PO SCH (09:00)
[2021-11-15] MEDS: METOPROLOL TARTRATE 100 MG TABLET PO SCH (09:00)
[2021-11-15] MEDS: APIXABAN 2.5 MG TABLET PO SCH ×2 (09:00→20:30)
[2021-11-15] MEDS: ROSUVASTATIN 10 MG TABLET PO SCH (09:00)
[2021-11-15] MEDS: DOCUSATE SODIUM 100 MG CAPSULE PO SCH ×4 (09:00→20:30)
[2021-11-15] MEDS: FAMOTIDINE 20 MG TABLET PO SCH (09:00)
[2021-11-15] MEDS: NICOTINE 14 MG/24 HR PATCH TRANSDERM SCH (09:01)
[2021-11-15] MEDS: PANTOPRAZOLE 40 MG VIAL IV SCH (09:01)
[2021-11-15] MEDS: methylPREDNISolone SOD SUC 40 MG/1 ML VIAL IV SCH ×2 (09:02→20:31)
[2021-11-15] MEDS: MEMANTINE 10 MG TABLET PO SCH (20:30)
[2021-11-15] MEDS: SODIUM CHLORIDE 0.9% 1,000 ML IV SCH (20:37)
[2021-11-16] MEDS: cefTRIAXone 1,000 MG in SODIUM CHLORIDE 0.9% 100 ML IV SCH (01:02)
[2021-11-16] MEDS: ALBUTEROL/IPRATROPIUM 3 ML NEB RESP TX SCH ×4 (03:55→15:30)
[2021-11-16] MEDS: BUDESONIDE 0.25 MG/2 ML NEB RESP TX SCH (07:20)
[2021-11-16] MEDS: LACTULOSE 20 GM/30 ML UDCUP PO SCH (10:14)
[2021-11-16] MEDS: POLYETHYLENE GLYCOL POWDER 17 GM PACK PO SCH (10:14)
[2021-11-16] MEDS: APIXABAN 2.5 MG TABLET PO SCH (10:17)
[2021-11-16] MEDS: DOCUSATE SODIUM 100 MG CAPSULE PO SCH (10:17)
[2021-11-16] MEDS: TAMSULOSIN 0.4 MG CAPSULE PO SCH (10:17)
[2021-11-16] MEDS: ROSUVASTATIN 10 MG TABLET PO SCH (10:17)
[2021-11-16] MEDS: FAMOTIDINE 20 MG TABLET PO SCH (10:18)
[2021-11-16] MEDS: METOPROLOL TARTRATE 100 MG TABLET PO SCH (10:18)
[2021-11-16] MEDS: NICOTINE 14 MG/24 HR PATCH TRANSDERM SCH (10:21)
[2021-11-16] MEDS: PANTOPRAZOLE 40 MG VIAL IV SCH (10:29)
[2021-11-16] MEDS: methylPREDNISolone SOD SUC 40 MG/1 ML VIAL IV SCH (10:33)
[2021-11-16 16:47] VITALS: BP 135/94
== END 2021-11-16 18:30 | disposition home health service (06) | DRG 884 ==
LOC: EDBD → EDUNIT# → N.ED 18:59 → N.EDINP 18:59 → N.3E 11-13 00:42
PROVIDERS: ADMIT Internal Medicine; ATTEND Internal Medicine